=== PATIENT | male | born 1975 | race African-American/Black ===

== ENCOUNTER 2025-06-03 21:01 | Inpatient (IN) | payer OTHER ==
[~2025-06-03] VITALS: Ht 182.9 cm; Wt 104.5 kg
[2025-06-03 21:00] VITALS: PULSE 109; RESP 19; O2SAT 100
[~2025-06-03 21:01] MED LIST: ATROPINE SULFATE 1MG/10ML SYR ONE; EPINEPHRINE 0.1MG/ML (1:10,000) 10ML SYR ONE; SODIUM BICARBONATE 8.4% 50MEQ/50ML SYR IV ONE
[2025-06-03] MEDS ORDERED: KETAMINE HCL 50 MG/ML 10ML ONE (21:06)
[2025-06-03] MEDS: KETAMINE HCL 50 MG/ML 10ML IV ONE ×2 (21:07→21:28)
[2025-06-03] MEDS ORDERED: FENTANYL 2500MCG/250ML PMX 250 ML IV ONE (21:30)
[2025-06-03] MEDS ORDERED: AMIODARONE HCL 300 MG in DEXT 5% WATER 100 ML IV ONE (21:30)
[2025-06-03 21:39] LABS: BASOPHILS % 0.4 % (0.0-2.0); EOSINOPHILS % 0.9 % (0.0-5.0); HEMATOCRIT. 40.7 % (42.0-52.0); HEMOGLOBIN. 13.1 g/dL (14.0-18.0); LYMPHOCYTES % 32.5 % (20.0-50.0); MEAN PLATELET VOLUME 9.8 fl (7.4-10.4); MONOCYTES % 6.0 % (2.0-8.0); NEUTROPHILS % 60.2 % (40.0-76.0); PLATELET 204 x1000/uL (130-400); RED BLOOD CELL COUNT 4.57 mill/uL (4.7-6.1); RED CELL DISTRIBUTION WIDTH 14.1 % (11.6-14.6)
[2025-06-03 21:41] LABS: BG DEOXYHEMOGLOBIN 3.1 % (0.0-5.0)
[2025-06-03] MEDS: FENTANYL 2500MCG/250ML PMX 250 ML IV NR (21:42)
[2025-06-03] MEDS: MIDAZOLAM HCL 2 MG/2 ML VIAL IV ONE (21:47)
[2025-06-03 21:59] LABS: CREATININE 1.6 mg/dL (0.6-1.3); TROPONIN I HIGH SENSITIVITY 23 ng/L (3.0-53); UREA NITROGEN BLOOD 20 mg/dL (9-23)
[2025-06-03 22:00] LABS: ETHANOL BLOOD < 10 mg/dL (<10)
[2025-06-03 22:01] LABS: ASPARTATE AMINOTRANSFERASE 186 IU/L (<34); BILIRUBIN DIRECT 0.3 mg/dL (<=3.0); BILIRUBIN TOTAL 0.6 mg/dL (0.1-1.0); PROTEIN TOTAL 6.8 g/dL (6.0-8.3)
[2025-06-03] MEDS: MIDAZOLAM HCL 2 MG/2 ML VIAL IV PRN (22:19)
[2025-06-03 22:31] LABS: INR 1.2
[2025-06-03] MEDS ORDERED: IPRATROPIUM/ALBUTEROL 0.5-3(2.5)MG/3ML NEB NEB PRN (23:00)
[2025-06-03] MEDS: AMIODARONE 150MG/100ML D5W 100 ML IV SCH (23:18)
[2025-06-03] MEDS ORDERED: MIDAZOLAM 100MG/100ML PMX 100 ML IV STA (23:33)
[2025-06-03 23:45] LABS: TROPONIN I HIGH SENSITIVITY 48 ng/L (3.0-53)
[2025-06-03 23:50] VITALS: PULSE 103; RESP 25; O2SAT 93
[2025-06-04] VITALS (106 sets, daily range): BP systolic 107–162; BP diastolic 75–109; PULSE 66–101; RESP 16–26; TEMP 36.3–37.1; O2SAT 90–100
[2025-06-04] MEDS: MIDAZOLAM 100MG/100ML PMX 100 ML IV NR (00:15)
[2025-06-04] MEDS: LORAZEPAM 2MG/ML UD SYRINGE IV NR (01:57)
[2025-06-04] MEDS ORDERED: KETAMINE HCL 100 MG in SODIUM CHLORIDE 0.9% 98 ML IV PRN (02:00)
[2025-06-04 02:22] LABS: BG BASE EXCESS -3.2 mmol/L (-2.0-3.0); BG CARBOXYHEMOGLOBIN 0.5 % (0.5-1.5); BG DEOXYHEMOGLOBIN 7.4 % (0.0-5.0); BG FRACTION INSPIRED OXYGEN 100; BG HCO3 ACT 22.5 mmol/L (21.0-28.0); BG METHEMOGLOBIN 0.3 % (0.5-1.5); BG OXYGEN SATURATION 92.5 % (94.0-98.0); BG OXYHEMOGLOBIN 91.8 % (94.0-98.0); BG PCO2 42.8 mmHg (35.0-48.0); BG PEEP (cmH2O) 10.0 cmH2O; BG PH 7.339 (7.350-7.450); BG PO2 68.1 mmHg (83.0-108.0); BG SAMPLE SITE RIGHT RADIAL; BG TIDAL VOLUME(mL) 500.0 mL; BG TOTAL HEMOGLOBIN 13.9 g/dL (13.5-17.5); BG TOTAL RESPIRATORY RATE 20 b/min; BG VENT MODE VENT - AC
[2025-06-04] MEDS: KETAMINE HCL 100 MG in SODIUM CHLORIDE 0.9% 98 ML IV PRN (02:47)
[2025-06-04] MEDS: FUROSEMIDE 20MG/2ML VIAL IVP NR (03:03)
[2025-06-04 04:28] LABS: *AMPHETAMINES SCREEN URINE NEGATIVE (NEGATIVE); *BARBITURATES SCREEN URINE NEGATIVE (NEGATIVE); *BENZODIAZEPINES SCREEN URINE PRESUMPTIVE POSITIVE (NEGATIVE); *COCAINE SCREEN URINE NEGATIVE (NEGATIVE); CANNABINOID URINE SCREEN NEGATIVE (NEGATIVE); ECSTASY MDMA SCREEN URINE NEGATIVE (NEGATIVE); METHADONE URINE SCREEN NEGATIVE (NEGATIVE); OPIATES URINE SCREEN NEGATIVE (NEGATIVE); PHENCYCLIDINE URINE SCREEN NEGATIVE (NEGATIVE)
[2025-06-04] MEDS ORDERED: ONDANSETRON HCL 4MG/2ML INJ IV PRN ×2 (04:30→07:00)
[2025-06-04] MEDS ORDERED: GLIP5TAB22 PO (04:38)
[2025-06-04] MEDS ORDERED: CARV25TA47 PO (04:38)
[2025-06-04] MEDS ORDERED: ATOR40TA70 PO (04:38)
[2025-06-04] MEDS ORDERED: LOSA100T33 PO (04:38)
[2025-06-04] MEDS: VANCOMYCIN 1.75GM PMX (XELLIA) 350 ML IV NR (05:10)
[2025-06-04] MEDS: PIPERACILLIN/TAZO 3.375G/50ML 50 ML IV SCH (05:10)
[2025-06-04 05:49] LABS: HEMATOCRIT. 39.4 % (42.0-52.0); HEMOGLOBIN. 13.1 g/dL (14.0-18.0); MEAN PLATELET VOLUME 9.3 fl (7.4-10.4); PLATELET 168 x1000/uL (130-400); RED BLOOD CELL COUNT 4.47 mill/uL (4.7-6.1); RED CELL DISTRIBUTION WIDTH 14.3 % (11.6-14.6)
[2025-06-04 06:11] LABS: CREATININE 1.6 mg/dL (0.6-1.3); UREA NITROGEN BLOOD 20 mg/dL (9-23)
[2025-06-04 06:13] LABS: PHOSPHORUS 2.4 mg/dL (2.5-4.9)
[2025-06-04] MEDS ORDERED: DEXTROSE 50% WATER 50ML SYRINGE IV PRN (07:00)
[2025-06-04] MEDS ORDERED: ACETAMINOPHEN 650MG SUPP PR PRN ×2 (07:00)
[2025-06-04] MEDS ORDERED: ENOXAPARIN 40MG/0.4ML SYR SUBCUT SCH (07:00)
[2025-06-04] MEDS: BLOOD SUGAR DIAGNOSTIC STRIP TEST SCH (07:49)
[2025-06-04] MEDS: MAGNESIUM 4 G PREMIX 100 ML IV ONE (08:03)
[2025-06-04] MEDS: INSULIN LISPRO 100 UNITS/ML SUBCUT SCH (08:03)
[2025-06-04] MEDS: PANTOPRAZOLE SODIUM 40 MG/VIAL IV SCH ×2 (08:35→08:36)
[2025-06-04] MEDS: METHYLPREDNISOLONE SOD SUCC 125MG/2ML (ACT-O-VIAL) IV SCH (08:35)
[2025-06-04] MEDS: ENOXAPARIN 30MG/0.3ML SYR SUBCUT SCH (08:36)
[2025-06-04 09:07] LABS: BG BASE EXCESS -0.9 mmol/L (-2.0-3.0); BG CARBOXYHEMOGLOBIN 0.5 % (0.5-1.5); BG DEOXYHEMOGLOBIN 0.8 % (0.0-5.0); BG FRACTION INSPIRED OXYGEN 70; BG HCO3 ACT 23.1 mmol/L (21.0-28.0); BG METHEMOGLOBIN 0.3 % (0.5-1.5); BG OXYGEN SATURATION 99.2 % (94.0-98.0); BG OXYHEMOGLOBIN 98.4 % (94.0-98.0); BG PCO2 36.5 mmHg (35.0-48.0); BG PEEP (cmH2O) 10.0 cmH2O; BG PH 7.420 (7.350-7.450); BG PO2 142.1 mmHg (83.0-108.0); BG SAMPLE SITE RIGHT RADIAL; BG TIDAL VOLUME(mL) 500.0 mL; BG TOTAL HEMOGLOBIN 13.5 g/dL (13.5-17.5); BG VENT MODE VENT - PRVC; BG VENT RATE 20.0 set
[2025-06-04 09:26] LABS: INFLUENZA TYPE A Presumptive Negative (Pres. Neg.); INFLUENZA TYPE B Presumptive Negative (Pres. Neg.); RESPIRATORY SYNCYTIAL VIRUS Not Detected (Not Detectd)
[2025-06-04 09:52] LABS: TRIGLYCERIDE 56 mg/dL (0-150)
[2025-06-04 09:53] LABS: LDL CHOLESTEROL 66 mg/dL (5-100)
[2025-06-04 09:54] LABS: ASPARTATE AMINOTRANSFERASE 114 IU/L (<34); BILIRUBIN DIRECT 0.3 mg/dL (<=3.0); BILIRUBIN TOTAL 0.7 mg/dL (0.1-1.0); PROTEIN TOTAL 6.8 g/dL (6.0-8.3)
[2025-06-04] MEDS: FENTANYL 2500MCG/250ML PMX 250 ML IV PRN (10:05)
[2025-06-04 11:26] LABS: CLARITY URINE CLEAR (CLEAR); COLOR URINE YELLOW (YELLOW); GLUCOSE URINE 1+ (NEGATIVE); KETONES URINE NEGATIVE (NEGATIVE); LEUKOCYTE ESTERASE URINE NEGATIVE (NEGATIVE); NITRITE URINE NEGATIVE (NEGATIVE); OCCULT BLOOD URINE NEGATIVE (NEGATIVE); PH URINE 5.5 (4.5-8.0); PROTEIN URINE TRACE (NEGATIVE); SPECIFIC GRAVITY URINE 1.011 (1.005-1.030); UROBILINOGEN URINE 0.2 E.U./dL (0.2-1.0)
[2025-06-04 11:45] LABS: BACTERIA URINE NONE SEEN; RBC URINE 0-2 /hpf (0-2); SQUAMOUS EPITHELIAL CELL URINE RARE /lpf (RARE/1+); WBC URINE 0-2 /hpf (0-2); YEAST URINE NONE SEEN
[2025-06-04] MEDS: IPRATROPIUM/ALBUTEROL 0.5-3(2.5)MG/3ML NEB HHN SCH (12:20)
[2025-06-04 12:24] LABS: FOLIC ACID (FOLATE) SERUM 12.85 ng/mL (>5.38)
[2025-06-04 12:25] LABS: VITAMIN B12 SERUM 578 pg/mL (211-911)
[2025-06-04 14:15] LABS: LYMPHOCYTES % MANUAL 2.0 % (20.0-50.0); MONOCYTES % MANUAL 6.0 % (2.0-8.0); NEUTROPHILS % MANUAL 92.0 % (45.0-75.0)
[2025-06-04 14:16] LABS: PLATELET ESTIMATE NORMAL
[2025-06-04] MEDS: VANCOMYCIN 750MG/150ML (BAXTER) IV SCH (17:03)
[2025-06-04] MEDS: ATORVASTATIN CALCIUM 20MG TABLET PO SCH (21:26)
[2025-06-04] MEDS: CARVEDILOL 3.125 MG TABLET PO SCH (21:26)
[2025-06-04] MEDS ORDERED: IOHEXOL-350 100 ML BOTTLE ONE (23:39)
[2025-06-05] VITALS (66 sets, daily range): BP systolic 101–185; BP diastolic 64–122; PULSE 58–122; RESP 17–25; TEMP 36.1–37.9; O2SAT 99–100
[2025-06-05 06:40] LABS: HEMATOCRIT. 34.4 % (42.0-52.0); HEMOGLOBIN. 11.4 g/dL (14.0-18.0); MEAN PLATELET VOLUME 9.8 fl (7.4-10.4); PLATELET 157 x1000/uL (130-400); RED BLOOD CELL COUNT 3.90 mill/uL (4.7-6.1); RED CELL DISTRIBUTION WIDTH 14.2 % (11.6-14.6)
[2025-06-05 06:54] LABS: CREATININE 1.8 mg/dL (0.6-1.3)
[2025-06-05 06:58] LABS: UREA NITROGEN BLOOD 23 mg/dL (9-23)
[2025-06-05 06:59] LABS: PHOSPHORUS 3.8 mg/dL (2.5-4.9)
[2025-06-05] MEDS: POLYETHYLENE GLYCOL 3350 (17GM) 1 DOSE PACK PO SCH (09:05)
[2025-06-05] MEDS: ASPIRIN 81MG TABLET PO SCH (09:05)
[2025-06-05] MEDS: MIDAZOLAM 100MG/100ML PMX 100 ML IV PRN (09:06)
[2025-06-05 09:36] LABS: BG BASE EXCESS -1.6 mmol/L (-2.0-3.0); BG CARBOXYHEMOGLOBIN 0.8 % (0.5-1.5); BG DEOXYHEMOGLOBIN 1.2 % (0.0-5.0); BG FRACTION INSPIRED OXYGEN 40; BG HCO3 ACT 22.2 mmol/L (21.0-28.0); BG METHEMOGLOBIN 0.1 % (0.5-1.5); BG OXYGEN SATURATION 98.8 % (94.0-98.0); BG OXYHEMOGLOBIN 97.9 % (94.0-98.0); BG PCO2 34.9 mmHg (35.0-48.0); BG PEEP (cmH2O) 8.0 cmH2O; BG PH 7.422 (7.350-7.450); BG PO2 136.1 mmHg (83.0-108.0); BG SAMPLE SITE RIGHT RADIAL; BG TIDAL VOLUME(mL) 500.0 mL; BG TOTAL HEMOGLOBIN 12.8 g/dL (13.5-17.5); BG VENT MODE VENT - PRVC; BG VENT RATE 20.0 set
[2025-06-05 11:44] LABS: BAND% 1.0 % (1.0-6.0); LYMPHOCYTES % MANUAL 9.0 % (20.0-50.0); NEUTROPHILS % MANUAL 90.0 % (45.0-75.0); PLATELET ESTIMATE NORMAL
[2025-06-05] MEDS: VANCOMYCIN 1.25GM/250ML IV SCH (18:26)
[2025-06-05] MEDS: INSULIN GLARGINE 100 UNITS/ML SUBCUT SCH (21:27)
[2025-06-05] MEDS: INSULIN LISPRO 100 UNITS/ML SUBCUT SCH (21:28)
[2025-06-05] MEDS: ACETAMINOPHEN 325MG TABLET PO PRN (22:10)
[2025-06-06] VITALS (76 sets, daily range): BP systolic 131–219; BP diastolic 86–140; PULSE 69–134; RESP 11–35; TEMP 36.9–37.6; O2SAT 93–100
[2025-06-06] MEDS: HYDRALAZINE 20MG/ML VIAL IV PRN (01:04)
[2025-06-06 07:15] LABS: HEMATOCRIT. 36.0 % (42.0-52.0); HEMOGLOBIN. 11.6 g/dL (14.0-18.0); MEAN PLATELET VOLUME 9.8 fl (7.4-10.4); PLATELET 173 x1000/uL (130-400); RED BLOOD CELL COUNT 4.03 mill/uL (4.7-6.1); RED CELL DISTRIBUTION WIDTH 14.8 % (11.6-14.6)
[2025-06-06 07:39] LABS: CREATININE 1.5 mg/dL (0.6-1.3); UREA NITROGEN BLOOD 21 mg/dL (9-23)
[2025-06-06] MEDS: BLOOD SUGAR DIAGNOSTIC STRIP TEST SCH (07:50)
[2025-06-06] MEDS: POLYETHYLENE GLYCOL 3350 (17GM) 1 DOSE PACK PO SCH (08:28)
[2025-06-06 09:20] LABS: CLARITY URINE TURBID (CLEAR); COLOR URINE YELLOW (YELLOW); GLUCOSE URINE 1+ (NEGATIVE); KETONES URINE NEGATIVE (NEGATIVE); LEUKOCYTE ESTERASE URINE NEGATIVE (NEGATIVE); NITRITE URINE NEGATIVE (NEGATIVE); OCCULT BLOOD URINE NEGATIVE (NEGATIVE); PH URINE 6.0 (4.5-8.0); PROTEIN URINE TRACE (NEGATIVE); SPECIFIC GRAVITY URINE 1.026 (1.005-1.030); UROBILINOGEN URINE 0.2 E.U./dL (0.2-1.0)
[2025-06-06 09:39] LABS: BACTERIA URINE 1+; RBC URINE NONE SEEN /hpf (0-2); SQUAMOUS EPITHELIAL CELL URINE NONE SEEN /lpf (RARE/1+); URIC ACID CRYSTALS URINE 4+ /lpf; WBC URINE 0-2 /hpf (0-2); YEAST URINE NONE SEEN
[2025-06-06 10:28] LABS: BG BASE EXCESS -0.9 mmol/L (-2.0-3.0); BG CARBOXYHEMOGLOBIN 0.8 % (0.5-1.5); BG DEOXYHEMOGLOBIN 0.4 % (0.0-5.0); BG FLOW(L/min) 15.00 L/min; BG FRACTION INSPIRED OXYGEN 100; BG HCO3 ACT 24.1 mmol/L (21.0-28.0); BG METHEMOGLOBIN 0.2 % (0.5-1.5); BG OXYGEN SATURATION 99.6 % (94.0-98.0); BG OXYHEMOGLOBIN 98.6 % (94.0-98.0); BG PCO2 41.3 mmHg (35.0-48.0); BG PH 7.384 (7.350-7.450); BG PO2 227.9 mmHg (83.0-108.0); BG SAMPLE SITE RIGHT RADIAL; BG TOTAL HEMOGLOBIN 13.4 g/dL (13.5-17.5); BG VENT MODE MASK - NRB
[2025-06-06 11:18] LABS: BAND% 2.0 % (1.0-6.0); LYMPHOCYTES % MANUAL 4.0 % (20.0-50.0); MONOCYTES % MANUAL 1.0 % (2.0-8.0); NEUTROPHILS % MANUAL 93.0 % (45.0-75.0); PLATELET ESTIMATE NORMAL
[2025-06-06] MEDS: VANCOMYCIN 750MG/150ML (BAXTER) IV SCH (13:54)
[2025-06-06] MEDS: CARVEDILOL 12.5MG TABLET PO NR (13:54)
[2025-06-06] MEDS: METOPROLOL TARTRATE 5MG/5ML VIAL IV NR (15:03)
[2025-06-06 18:11] LABS: CREATININE 1.4 mg/dL (0.6-1.3); UREA NITROGEN BLOOD 19 mg/dL (9-23)
[2025-06-06] MEDS: CARVEDILOL 12.5MG TABLET PO SCH (18:29)
[2025-06-06] MEDS: DILTIAZEM HCL 5MG/ML 5ML VIAL IV SCH (18:49)
[2025-06-06] MEDS: CLONIDINE 0.1MG TABLET PO SCH ×3 (18:49→22:08)
[2025-06-06] MEDS: AMLODIPINE 5MG TABLET PO SCH ×2 (20:48→22:08)
[2025-06-06] MEDS ORDERED: CARVEDILOL 3.125 MG TABLET PO SCH (21:00)
[2025-06-06] MEDS ORDERED: CARVEDILOL 12.5MG TABLET PO SCH ×2 (21:00)
[2025-06-06] MEDS: HYDRALAZINE HCL 25MG TABLET PO SCH (21:12)
[2025-06-06] MEDS ORDERED: HYDROCODONE/ACETAMINOPHEN 5/325MG TABLET PO PRN (21:30)
[2025-06-06] MEDS ORDERED: DOCUSATE SODIUM 250MG CAPSULE PO PRN (21:30)
[2025-06-06] MEDS ORDERED: CLONIDINE 0.2MG TABLET PO SCH ×2 (22:00)
[2025-06-06] MEDS ORDERED: CLONIDINE 0.1MG TABLET PO SCH (22:00)
[2025-06-06 22:07] LABS: TROPONIN I HIGH SENSITIVITY 38 ng/L (3.0-53)
[2025-06-06 22:09] LABS: PHOSPHORUS 2.7 mg/dL (2.5-4.9)
[2025-06-07] VITALS (50 sets, daily range): BP systolic 119–161; BP diastolic 74–107; PULSE 74–138; RESP 17–36; TEMP 36.9–37.4; O2SAT 91–100
[2025-06-07] MEDS: CLONIDINE 0.2MG TABLET PO SCH (05:07)
[2025-06-07 06:35] LABS: HEMATOCRIT. 36.8 % (42.0-52.0); HEMOGLOBIN. 12.0 g/dL (14.0-18.0); MEAN PLATELET VOLUME 9.6 fl (7.4-10.4); PLATELET 182 x1000/uL (130-400); RED BLOOD CELL COUNT 4.13 mill/uL (4.7-6.1); RED CELL DISTRIBUTION WIDTH 14.4 % (11.6-14.6)
[2025-06-07 06:53] LABS: CREATININE 1.4 mg/dL (0.6-1.3)
[2025-06-07 06:54] LABS: UREA NITROGEN BLOOD 24 mg/dL (9-23)
[2025-06-07 06:56] LABS: PHOSPHORUS 3.3 mg/dL (2.5-4.9)
[2025-06-07] MEDS: DEXT 5%/0.9% NACL 1,000 ML IV SCH (07:21)
[2025-06-07] MEDS ORDERED: NALOXONE HCL 0.4MG/ML VIAL IV PRN (07:30)
[2025-06-07] MEDS: AMLODIPINE 5MG TABLET PO SCH (08:07)
[2025-06-07] MEDS ORDERED: AMLODIPINE 5MG TABLET PO SCH (09:00)
[2025-06-07] MEDS: INSULIN LISPRO 100 UNITS/ML SUBCUT SCH (10:07)
[2025-06-07 11:26] LABS: LYMPHOCYTES % MANUAL 5.0 % (20.0-50.0); MONOCYTES % MANUAL 2.0 % (2.0-8.0); NEUTROPHILS % MANUAL 93.0 % (45.0-75.0); PLATELET ESTIMATE NORMAL
[2025-06-07] MEDS: MAGNESIUM 2 G PREMIX 50 ML IV SCH (14:29)
[2025-06-07] MEDS: POTASSIUM CHLORIDE 20MEQ/PACKET PO SCH (14:30)
[2025-06-07] MEDS ORDERED: INSULIN GLARGINE 100 UNITS/ML SUBCUT SCH (22:00)
== END 2025-06-07 21:30 | disposition short-term general hospital (02) | DRG 208 ==
LOC: ER 21:17 → CVICU 06-04 00:17 → ENRESERV 06-04 00:25 → CVICU 06-04 01:31
PROVIDERS: ADMIT Internal Medicine; ATTEND Internal Medicine
PROC: 5A1945Z Respiratory Ventilation, 24-96 Consecutive Hours (ICD-10-PCS; principal; 2025-06-03)
PROC: 0BH17EZ Insertion of Endotracheal Airway into Trachea, Via Natural or Artificial Opening (ICD-10-PCS; 2025-06-04)
PROC: 5A0935A Assistance with Respiratory Ventilation, Less than 24 Consecutive Hours, High Flow/Velocity Cannula (ICD-10-PCS; 2025-06-07)
DX: J96.01 Acute respiratory failure with hypoxia (principal); G93.41 Metabolic encephalopathy; I49.01 Ventricular fibrillation; J69.0 Pneumonitis due to inhalation of food and vomit; N17.0 Acute kidney failure with tubular necrosis; I46.2 Cardiac arrest due to underlying cardiac condition; I50.43 Acute on chronic combined systolic (congestive) and diastolic (congestive) heart failure; G93.1 Anoxic brain damage, not elsewhere classified; I11.0 Hypertensive heart disease with heart failure; D50.9 Iron deficiency anemia, unspecified; R74.01 Elevation of levels of liver transaminase levels; E11.65 Type 2 diabetes mellitus with hyperglycemia; G35 Multiple sclerosis; E78.00 Pure hypercholesterolemia, unspecified; E83.39 Other disorders of phosphorus metabolism; E83.42 Hypomagnesemia; Z20.822 Contact with and (suspected) exposure to COVID-19; Z99.81 Dependence on supplemental oxygen
CPT/HCPCS: 31720; 36415; 36600; 71045; 71275; 76770; 80048; 80061; 80076; 80202; 80305; 80320; 81003; 82375; 82607; 82746; 82803; 82805; 82962; 83036; 83520; 83605; 83735; 83880; 84100; 84145; 84443; 84484; 85025; 85379; 87070; 87420; 87426; 87804; 93005; 93306; 93970; 94002; 94003; 94070; 94640; 94664; 99285; A4606; J0282; J0360; J0461; J1650; J1815; J1938; J2060; J2250; J2470; J2543; J2919; J3010; J3373; J3475; J3490; J7050; J7060; Q9967; G0480